=== PATIENT | female | born 1980 | race Caucasian/White ===

== ENCOUNTER 2018-08-06 17:45 | Observation (INO) | payer BC ==
[2018-08-06] MEDS ORDERED: Sodium Chloride 0.9% 1,000 ML IV STA (18:26)
--- NOTE | 2018-08-06 18:26 | ED PDOC ---
Arrival/HPI - General Chief Complaint: Cough, Cold, Congestion Time Seen by Provider: 08/06/18 17:50 Historian: Patient - History of Present Illness Narrative History of Present Illness (Text): 08/06/18 21:50 38 y/o female with no significant PMH presents to the ED c/o dry cough x 1 month with associated SOB starting today. SOB is intermittent and worse with exertion. Associated intermittent fever over the last few days. Pt is on OCPs but denies recent immobilization/trauma/travel or history of malignancy. No tobacco use. Ad mits to increased alcohol use on vacation last week. Denies chest pain, palpitations, nausea, vomiting, diarrhea, abdominal pain, calf pain or swelling, hemoptysis, headache, dizziness, vision changes, urinary symptoms, or any other associated symptoms. Past Medical History - Provider Review Nursing Documentation Reviewed: Yes Primary Care Provider: Ian Miller - Infectious Disease Hx of Infectious Diseases: None - Tetanus Immunization Tetanus Immunization: Unknown - HEENT Other/Comment: Retinal detachment syndrome - Genitourinary/Gynecological Other/Comment: multiple ovarian cyst with multiple laparoscopic sx - Psychiatric Hx Depression: No Hx Emotional Abuse: No Hx Physical Abuse: No Hx Substance Use: No - Surgical History Hx Section: Yes Other/Comment: ovarian cyst - Anesthesia Hx Anesthesia: Yes Hx Anesthesia Reactions: No Hx Malignant Hyperthermia: No - Suicidal Assessment Feels Threatened In Home Enviroment: No Family/Social History - Physician Review Nursing Documentation Reviewed: Yes Family/Social History: No Known Family HX Smoking Status: Never Smoked Hx Alcohol Use: Yes Frequency of alcohol use: Socially Hx Substance Use: No Allergies/Home Meds Allergies/Adverse Reactions: Allergies No Known Allergies Allergy (Verified 08/06/18 17:50) Home Medications: Home Meds Medication Instructions Recorded Confirmed Norethindrone-E.estradiol-Iron 1 tab PO DAILY 08/01/13 08/06/18 [Tilia Fe 35 Mcg-75 mg-1 mg] Albuterol HFA [Ventolin HFA 90 1 puff IH PRN PRN 08/06/18 08/06/18 mcg/actuation (8 g)] Review of Systems - Review of Systems Constitutional: Fevers Eyes: Normal. absent: Vision Changes ENT: Normal Respiratory: SOB, Cough. absent: Sputum Cardiovascular: Normal. absent: Chest Pain, Palpitations, Syncope Gastrointestinal: Normal. absent: Abdominal Pain, Stool Changes, Nausea, Vomiting, Appetite Changes Genitourinary Female: Normal. absent: Dysuria, Frequency Musculoskeletal: Normal. absent: Back Pain, Neck Pain Skin: Normal. absent: Rash Neurological: Normal. absent: Headache, Dizziness Physical Exam Vital Signs Reviewed: Yes Vital Signs Temp Pulse Resp BP Pulse Ox 08/06/18 17:50 98 F 110 H 18 133/79 98 Temperature: Afebrile Blood Pressure: Normal Pulse: Tachycardic Respiratory Rate: Normal Appearance: Positive for: Well-Appearing, Non-Toxic, Comfortable Pain Distress: None Mental Status: Positive for: Alert and Oriented X 3 - Systems Exam Head: Present: Atraumatic, Normocephalic Pupils: Present: PERRL Extroacular Muscles: Present: EOMI Conjunctiva: Present: Normal Mouth: Present: Moist Mucous Membranes Neck: Present: Normal Range of Motion. No: Meningeal Signs, MIDLINE TENDERNESS, Paraspinal Tenderness Respiratory/Chest: Present: Clear to Auscultation, Decreased Breath Sounds (bilaterally). No: Respiratory Distress, Accessory Muscle Use, Wheezes Cardiovascular: Present: Regular Rate and Rhythm, Normal S1, S2, Peripheal Pul ses Present Abdomen: Present: Normal Bowel Sounds. No: Tenderness, Distention, Peritoneal Signs, Rebound, Guarding, Other (no RUQ tenderness) Back: Present: Normal Inspection. No: CVA Tenderness Upper Extremity: Present: Normal Inspection, Normal ROM, NORMAL PULSES, Neurovascularly Intact, Capillary Refill < 2s. No: Cyanosis, Edema, Temperature Abnormalties Lower Extremity: Present: Normal Inspection, NORMAL PULSES, Normal ROM, Neurovascularly Intact, Capillary Refill < 2 s. No: Edema, Temperature Abnormalties Neurological: Present: GCS=15, CN II-XII Intact, Speech Normal, Motor Func Grossly Intact, Normal Sensory Function, Gait Normal Skin: Present: Warm, Dry, Normal Color. No: Rashes Psychiatric: Present: Alert, Oriented x 3, Normal Insight, Normal Concentration, Normal Affect, Normal Mood Medical Decision Making ED Course and Treatment: Initial Plan: * CBC, CMP * Coags * Dimer, Troponin * UA * EKG * CXR * IVF EKG shows rate 99; NSR; Normal axis; No STEMI or other signs of acute ischemia 1944 Bloodwork reviewed, no anemia or leukocytosis. LFTs mildly elevated. Pt has no abdominal pain, denies excessive tylenol use. Increase alcohol use last week on vacation. Monospot sent. Dimer elevated, CTA ordered. Pt in XR. CT to be done stat. 2155 CTA negative for pulmonary embolism, shows hepatomegaly. Spoke with PMD Dr. Miller who accepted patient for inpatient observation. Requests GI (Dr. Day) and Pulmonology (Dr. Kennedy) on consult. Plan is for remote telemetry, however he requests bilateral venous duplex prior to admission secondary to elevated dimer. 0030 Bilateral venous duplex prelim read as negative. Patient updated with results. Vitals have improved since triage. Admission order placed for remote telemetry. - Lab Interpretations Lab Results: 08/06/18 18:59 08/06/18 18:59 Lab Results 08/06/18 19:40: Urine Color Yellow, Urine Appearance Clear, Urine pH 6.0, Ur Specific [place] 1.025, Urine Protein Trace H, Urine Glucose (UA) Negative, Urine Ketones Negative, Urine Blood Small H, Urine Nitrate Negative, Urine Bilirubin Negative, Urine Urobilinogen 0.2, Ur Leukocyte Esterase Negative, Urine RBC 1 - 3 H, Urine WBC 0 - 2, Ur Epithelial Cells 0 - 2, Urine Bacteria Few 08/06/18 19:15: pO2 32, VBG pH 7.41, VBG pCO2 43.0, VBG HCO3 27.3, VBG Total CO2 28.6 H, VBG O2 Sat (Calc) 71.7 H, VBG Base Excess 2.2 H, VBG Potassium 4.5, Glucose 86, Lactate 1.1, FiO2 21.0, Sodium 134.0, Chloride 102.0, Venous Blood Potassium 4.5 08/06/18 18:59: Sodium 135, Potassium 4.4, Chloride 102, Carbon Dioxide 27, Anion Gap 10, BUN 10, Creatinine 0.6 L, Est GFR ( Amer) > 60, Est GFR (Non-Af Amer) > 60, Random Glucose 84, Calcium 8.7, Magnesium 1.9, Total Bilirubin 0.4, AST 169 H, ALT 149 H, Alkaline Phosphatase 80, Lactate Dehydrogenase 1195 H, Total Creatine Kinase 68, Troponin I < 0.01, NT-Pro-B Natriuret Pep 29.7, Total Protein 6.9, Albumin 3.7, Globulin 3.2, Albumin/Globulin Ratio 1.1 08/06/18 18:59: PT 11.6, INR 1.05, APTT 26.9, D-Dimer, Quantitative 6108 H 08/06/18 18:59: WBC 5.2, RBC 4.51, Hgb 12.9, Hct 38.6, MCV 85.6, MCH 28.6, MCHC 33.4, RDW 16.7 H, Plt Count 155, MPV 11.2 H, Neut % (Auto) 57.0, Lymph % (Auto) 31.5, [place] % (Auto) 9.4 H, Eos % (Auto) 0.2 L, Baso % (Auto) 1.9, Lymph # (Auto) 1.7, [place] # (Auto) 0.5, Eos # (Auto) 0.0, Baso # (Auto) 0.10, Absolute Neuts (auto) 2.98 I have reviewed the lab results: Yes - RAD Interpretation Narrative RAD Interpretations (Text): 08/06/18 21:43 CTA PE Protocol: FINDINGS: PULMONARY ARTERIES No evidence of central or segmental pulmonary embolism is seen. AORTA There is no evidence for aneurysm or dissection of the thoracic aorta. LUNGS The lungs appear clear. PLEURAL SPACES No pneumothorax evident. No pleural effusions. HEART Heart size is within normal limits. No pericardial effusion. LYMPH NODES No lymphadenopathy is evident. BONES No focal osseous abnormality or acute fracture. UPPER ABDOMEN Images of the upper abdomen demonstrate hepatomegaly. The liver measured 17.2 cm in the midclavicular line. IMPRESSION: 1. Unremarkable pulmonary embolism protocol CTA of the chest. 2. Hepatomegaly. Electronically signed on Aug 06, 2018 9:35:15 PM EDT by: Scott Ayoub M.D., M.B.A., Certified By [employer] Trained MRI and CT Specialist Stage Set Up Worker: Radiologist - EKG Interpretation EKG Interpretation (Text): 08/06/18 21:16 Rate 99; NSR; No STEMI or other signs of acute ischemia Interpreted by ED Physician: Yes Type: 12 lead EKG Disposition/Present on Arrival - Present on Arrival Any Indicators Present on Arrival: No History of DVT/PE: No History of Uncontrolled Diabetes: No Urinary Catheter: No History of Decub. Ulcer: No History Surgical Site Infection Following: None - Disposition Have Diagnosis and Disposition been Completed?: Yes Diagnosis: SOB (shortness of breath), Elevated d-dimer, Cough Disposition: HOSPITALIZED Disposition Time: 21:55 Patient Plan: Admission Condition: STABLE
[2018-08-06 19:21] LABS: BASO # 0.1 K/mm3 (0.0-2.0); BASO % 1.9 % (0.0-3.0); EOS % 0.2 % (1.5-5.0); HEMOGLOBIN 12.9 g/dL (12.0-16.0); LYMPH # 1.7 (1.2-3.4); LYMPH % 31.5 % (22.0-35.0); MEAN CELL VOLUME 85.6 fl (80.0-105.0); MEAN CORPUSCULAR HEMOGLOBIN 28.6 pg (25.0-35.0); MEAN CORPUSCULAR HGB CONC 33.4 g/dl (31.0-37.0); MEAN PLATELET VOLUME 11.2 fl (7.0-11.0); MONO # 0.5 (0.1-0.6); MONO % 9.4 % (1.0-6.0); RBC 4.51 10^6/uL (3.5-6.1); RED CELL DISTRIBUTION WIDTH 16.7 % (11.5-14.5); WHITE BLOOD COUNT 5.2 10^3/uL (4.5-11.0)
[2018-08-06 19:23] LABS: ALB/GLOB RATIO 1.1 (1.1-1.8); ALBUMIN 3.7 g/dL (3.0-4.8); BLOOD UREA NITROGEN 10 mg/dL (7-21); CALCIUM 8.7 mg/dL (8.4-10.5); GFR NON-AFRICAN AMERICAN > 60
[2018-08-06 19:30] LABS: VENOUS BLOOD GAS BASE EXCESS 2.2 mmol/L (0.0-2.0); VENOUS BLOOD GAS PO2 32 mm/Hg (30-55); VENOUS BLOOD PH 7.41 (7.32-7.43)
[2018-08-06 19:32] LABS: ALT/SGPT 149 U/L (7-56); AST/SGOT 169 U/L (14-36)
[2018-08-06 19:38] LABS: INR 1.05; PARTIAL THROMBOPLASTIN TIME 26.9 Seconds (26.9-38.3); PROTHROMBIN TIME 11.6 SECONDS (9.4-12.5)
[2018-08-06 19:42] LABS: B-TYPE NATRIURETIC PEPTIDE 29.7 pg/mL (0-450); TROPONIN I < 0.01 ng/mL
[2018-08-06 19:54] LABS: URINE BILIRUBIN NEGATIVE (NEGATIVE); URINE BLOOD SMALL (NEGATIVE); URINE GLUCOSE (UA) NEGATIVE (NEGATIVE); URINE LEUKOCYTE ESTERASE NEGATIVE Leu/uL (NEGATIVE); URINE PROTEIN TRACE mg/dL (<30 mg/dL); URINE UROBILINOGEN 0.2 E.U./dL (<1 E.U./dL)
[2018-08-06 20:00] LABS: URINE COLOR YELLOW (YELLOW)
[2018-08-06 20:01] LABS: URINE APPEARANCE CLEAR (CLEAR)
[2018-08-06] MEDS ORDERED: Iohexol 350 MG/100 ML VIAL ONE (20:29)
[2018-08-06 20:32] LABS: URINE BACTERIA FEW /hpf; URINE EPITHELIAL CELLS 0 - 2 /hpf (0-5); URINE WBC 0 - 2 /hpf (0-6)
--- NOTE | 2018-08-06 21:35 | CARD ---
APPROVED REPORT Date of service: 08/06/2018 EKG Measurement Heart [id number] <Conclusion> Poor data quality, interpretation may be adversely affected Normal sinus rhythm Normal ECG
[2018-08-06] MEDS: MethylPREDNISolone 40 mg Vial IVP SCH (23:06)
[2018-08-07] MEDS ORDERED: Sodium Chloride 0.9% 1,000 ML IV SCH (01:15)
[2018-08-07 01:56] VITALS: BMI 32.0
[2018-08-07 01:58] VITALS: O2SAT 97
[2018-08-07] MEDS: Albuterol-Ipratrop 3 mg / 0.5 (3 ml) UD IH SCH ×2 (07:46→13:12)
[2018-08-07 07:56] VITALS: BP 103/66; RESP 18; TEMP 97.6
--- NOTE | 2018-08-07 08:22 | CT ---
Date of service: 08/06/2018 PROCEDURE: CT Chest with contrast (Pulmonary Angiogram) HISTORY: tachycardia, elevated dimer, SOB COMPARISON: None available. TECHNIQUE: Axial computed tomography images were obtained of the chest in the pulmonary arterial phase of enhancement. Coronal and sagittal reformatted images were created and reviewed. Intravenous contrast dose: 100 cc Omnipaque 350. Mean Hounsfield value in the main pulmonary artery: 255.85 Radiation dose: Total exam DLP = 284.83 mGy-cm. This CT exam was performed using one or more of the following dose reduction techniques: Automated exposure control, adjustment of the mA and/or kV according to patient size, and/or use of iterative reconstruction technique. FINDINGS: PULMONARY ARTERIES: Unremarkable. No pulmonary embolism. AORTA: No acute findings. No thoracic aortic aneurysm. No atherosclerotic calcification or mural plaque present. LUNGS: Unremarkable. No nodule, mass or pulmonary consolidation. PLEURAL SPACES: Unremarkable. No effusion or pneumothorax. HEART: Unremarkable. No cardiomegaly. No significant pericardial effusion. LYMPH NODES: No lymphadenopathy. BONES, CHEST WALL: Unremarkable. No fracture or destructive lesion OTHER FINDINGS: Unremarkable. IMPRESSION: Unremarkable CT pulmonary angiogram. No pulmonary embolus. Concordant results (preliminary interpretation) provided by Hooja. Procedure Completed: 20:36. Preliminary Report: Interpreted and electronically signed: 21:35. Final Interpretation: 08:18.
--- NOTE | 2018-08-07 08:56 | US ---
HISTORY: Leg pain and swelling. Evaluate for DVT PHYSICIAN(S): Joe Gao MD. TECHNIQUE: Duplex sonography and color-flow Doppler with graded compression were used to evaluate the deep venous systems of both lower extremities. FINDINGS: The visualized deep venous systems of both lower extremities are sonographically normal and compressible. Normal wave forms and augmentation are seen. There is no sonographic evidence for deep venous thrombosis in the visualized segments of both lower extremities. IMPRESSION: No sonographic evidence for deep venous thrombosis in the visualized segments of both lower extremities.
[2018-08-07] MEDS: MethylPREDNISolone 40 mg Vial IVP SCH (09:24)
--- NOTE | 2018-08-07 10:08 | RAD ---
Date of service: 08/06/2018 HISTORY: SOB COMPARISON: No prior. TECHNIQUE: Chest PA and lateral views FINDINGS: LUNGS: No active pulmonary disease. PLEURA: No significant pleural effusion identified. No pneumothorax apparent. CARDIOVASCULAR: No aortic atherosclerotic calcification present. Normal cardiac size. No pulmonary vascular congestion. OSSEOUS STRUCTURES: No significant abnormalities. VISUALIZED UPPER ABDOMEN: Normal. OTHER FINDINGS: None. IMPRESSION: No active disease.
--- NOTE | 2018-08-07 10:23 | CP.PCM.CON ---
<Leno Gonzales - Last Filed: 08/07/18 13:14> History of Present Illness - History of Present Illness History of Present Illness: PGY6 GI Fellow Consult Note Patient is a 38yo female without significant past medical history who presented to the ED with cough and shortness of breath. Four days prior to admission the patient developed recurrent upper respiratory symptoms including cough and rh inorrhea. Yesterday, patient developed sudden onset dyspnea with exertion and presented to her PCP and was promptly directed to the emergency room. Our service has been consulted as elevated LFTs were noted on initial blood work. Patient admits that she drank more alcohol than usual this past week with 2-3 drinks per day over a 3 day span. She notes having had loose stool and cramping abdominal discomfort last week after eating out at a [employer] restaurant. She denies any IVDU or tattoos and has never been diagnosed with viral Hepatitis or autoimmune conditions. No recent OTC medications or supplements. Only recent prescription was Tamiflu which she took in early July when diagnosed with Inf luenza. Denies nausea, vomiting, weight loss, fever, chills, jaundice, pruritus. 12 system ROS performed and negative except where stated PMHx: See HPI PSHx: Ovarian cyst removed, right ovary removed, right retinal detachment repair, salivary gland cyst removed, FHx: Mother - Alzheimer dementia; Father - Osteoarthritis Social: Socail EtOH use - more recent increase last week as stated; denies tobacco or illicit drug use Endo: No prior endoscopic evaluations Past Patient History - Infectious Disease Hx of Infectious Diseases: None - Tetanus Immunizations Tetanus Immunization: Unknown - Past Social History Smoking Status: Never Smoked - CARDIAC Hx Cardiac Disorders: No - PULMONARY Hx Respiratory Disorders: No - NEUROLOGICAL Hx Neurological Disorder: No - HEENT Other/Comment: Retinal detachment syndrome - RENAL Hx Chronic Kidney Disease: No - ENDOCRINE/METABOLIC Hx Endocrine Disorders: No - HEMATOLOGICAL/ONCOLOGICAL Hx Blood Disorders: No - INTEGUMENTARY Hx Dermatological Problems: No - MUSCULOSKELETAL/RHEUMATOLOGICAL Hx Musculoskeletal Disorders: No Hx Falls: No - GASTROINTESTINAL Hx Gastrointestinal Disorders: No - GENITOURINARY/GYNECOLOGICAL Other/Comment: multiple ovarian cyst with multiple laparoscopic sx - PSYCHIATRIC Hx Depression: No Hx Emotional Abuse: No Hx Physical Abuse: No Hx Substance Use: No - SURGICAL HISTORY Hx Section: Yes Other/Comment: ovarian cyst - ANESTHESIA Hx Anesthesia: Yes Hx Anesthesia Reactions: No Hx Malignant Hyperthermia: No Meds Home Medications: Home Medication List Medication Instructions Recorded Confirmed Type predniSONE [predniSONE Tab] See Taper PO DAILY 9 Days tab 08/07/18 Rx Allergies/Adverse Reactions: Allergies Allergy/AdvReac Type Severity Reaction Status Date / Time No Known Allergies Allergy Verified 08/06/18 17:50 - Medications Medications: Current Medications Albuterol/Ipratropium (Duoneb 3 Mg/0.5 Mg (3 Ml) Ud) 3 ml IH [id number] [facility] Last Admin: 08/07/18 07:46 Dose: 3 ml Sodium Chloride (Sodium Chloride 0.9%) 1,000 mls @ 100 mls/hr IV .Q10H [facility] Last Admin: 08/07/18 01:30 Dose: 100 mls/hr Methylprednisolone (Solu-Medrol) 30 mg IVP Q12H [facility] Last Admin: 08/07/18 09:24 Dose: 30 mg Physical Exam - Constitutional Appears: Non-toxic, No Acute Distress - Eye Exam Eye Exam: EOMI, PERRL - ENT Exam ENT Exam: Mucous Membranes Moist - Respiratory Exam Respiratory Exam: Clear to Auscultation Bilateral. absent: Rales, Rhonchi, Wheezes - Cardiovascular Exam Cardiovascular Exam: RRR, +S1, +S2 - GI/Abdominal Exam GI & Abdominal Exam: Normal Bowel Sounds, Soft. absent: Distended, Firm, Guarding, Hernia, Mass, Organomegaly, Rigid, Tenderness - Extremities Exam Extremities exam: Positive for: normal inspection. Negative for: pedal edema - Neurological Exam Neurological exam: Alert, Oriented x3 - Psychiatric Exam Psychiatric exam: Normal Affect, Normal Mood - Skin Skin Exam: Dry, Warm Results - Vital Signs Recent Vital Signs: Last Vital Signs Temp 97.6 F 08/07/18 07:55 Pulse 78 08/07/18 07:55 Resp 18 08/07/18 07:55 BP 103/66 08/07/18 07:55 Pulse Ox 97 08/07/18 07:55 - Labs Result Diagrams: 08/06/18 18:59 08/06/18 18:59 Labs: Laboratory Results - last 24 hr 08/06/18 08/06/18 08/06/18 18:59 18:59 18:59 WBC 5.2 RBC 4.51 Hgb 12.9 Hct 38.6 MCV 85.6 MCH 28.6 MCHC 33.4 RDW 16.7 H Plt Count 155 MPV 11.2 H Neut % (Auto) 57.0 Lymph % (Auto) 31.5 [place] % (Auto) 9.4 H Eos % (Auto) 0.2 L Baso % (Auto) 1.9 Lymph # (Auto) 1.7 [place] # (Auto) 0.5 Eos # (Auto) 0.0 Baso # (Auto) 0.10 Absolute Neuts (auto) 2.98 PT 11.6 INR 1.05 APTT 26.9 D-Dimer, Quantitative 6108 H pO2 VBG pH VBG pCO2 VBG HCO3 VBG Total CO2 VBG O2 Sat (Calc) VBG Base Excess VBG Potassium Glucose Lactate FiO2 Sodium 135 Potassium 4.4 Chloride 102 Carbon Dioxide 27 Anion Gap 10 BUN 10 Creatinine 0.6 L Est GFR ( Amer) > 60 Est GFR (Non-Af Amer) > 60 Random Glucose 84 Calcium 8.7 Magnesium 1.9 Total Bilirubin 0.4 AST 169 H ALT 149 H Alkaline Phosphatase 80 Lactate Dehydrogenase 1195 H Total Creatine Kinase 68 Troponin I < 0.01 NT-Pro-B Natriuret Pep 29.7 Total Protein 6.9 Albumin 3.7 Globulin 3.2 Albumin/Globulin Ratio 1.1 Venous Blood Potassium Urine Color Urine Appearance Urine pH Ur Specific [place] Urine Protein Urine Glucose (UA) Urine Ketones Urine Blood Urine Nitrate Urine Bilirubin Urine Urobilinogen Ur Leukocyte Esterase Urine RBC Urine WBC Ur Epithelial Cells Urine Bacteria Monoscreen 08/06/18 08/06/18 08/06/18 19:15 19:40 21:30 WBC RBC Hgb Hct MCV MCH MCHC RDW Plt Count MPV Neut % (Auto) Lymph % (Auto) [place] % (Auto) Eos % (Auto) Baso % (Auto) Lymph # (Auto) [place] # (Auto) Eos # (Auto) Baso # (Auto) Absolute Neuts (auto) PT INR APTT D-Dimer, Quantitative pO2 32 VBG pH 7.41 VBG pCO2 43.0 VBG HCO3 27.3 VBG Total CO2 28.6 H VBG O2 Sat (Calc) 71.7 H VBG Base Excess 2.2 H VBG Potassium 4.5 Glucose 86 Lactate 1.1 FiO2 21.0 Sodium 134.0 Potassium Chloride 102.0 Carbon Dioxide Anion Gap BUN Creatinine Est GFR ( Amer) Est GFR (Non-Af Amer) Random Glucose Calcium Magnesium Total Bilirubin AST ALT Alkaline Phosphatase Lactate Dehydrogenase Total Creatine Kinase Troponin I NT-Pro-B Natriuret Pep Total Protein Albumin Globulin Albumin/Globulin Ratio Venous Blood Potassium 4.5 Urine Color Yellow Urine Appearance Clear Urine pH 6.0 Ur Specific [place] 1.025 Urine Protein Trace H Urine Glucose (UA) Negative Urine Ketones Negative Urine Blood Small H Urine Nitrate Negative Urine Bilirubin Negative Urine Urobilinogen 0.2 Ur Leukocyte Esterase Negative Urine RBC 1 - 3 H Urine WBC 0 - 2 Ur Epithelial Cells 0 - 2 Urine Bacteria Few Monoscreen Negative Assessment & Plan - Assessment and Plan (Free Text) Assessment: Patient is a 38yo female without significant past medical history who presented to the ED with cough and shortness of breath -Elevated LFTs -Gallbladder polyp -Acute upper respiratory infection Plan: -AST/ALT both >5x ULN; possibly related to recent EtOH if patient under- reporting use vs viral causes, DILI, COWAN or autoimmune etiologies -U/S abdomen ordered and reviewed - can monitor gallbladder polyp size in 6 months with repeat U/S -Check viral hepatitis serologies -Check autoimmune markers - LEVI, AMA, SMA, IgG, IgM -Monoscreen negative -No obvious cause of DILI -If patient to be discharged today, encourage outpatient monitoring of LFTs within 1-2 weeks to ensure downtrending levels and follow up on autoimmune serologies -Ultimately, if labs do not improve or indeed worsen, pt may require liver biop sy for further evaluation - Date & Time Date: 08/07/18 Time: 09:15 <Jakob Day - Last Filed: 08/07/18 16:22> Results - Vital Signs Recent Vital Signs: Last Vital Signs Temp 97.6 F 08/07/18 07:55 Pulse 103 H 08/07/18 10:00 Resp 18 08/07/18 07:55 BP 103/66 08/07/18 07:55 Pulse Ox 97 08/07/18 07:55 - Labs Result Diagrams: 08/06/18 18:59 08/06/18 18:59 Labs: Laboratory Results - last 24 hr 08/06/18 08/06/18 08/06/18 18:59 18:59 18:59 WBC 5.2 RBC 4.51 Hgb 12.9 Hct 38.6 MCV 85.6 MCH 28.6 MCHC 33.4 RDW 16.7 H Plt Count 155 MPV 11.2 H Neut % (Auto) 57.0 Lymph % (Auto) 31.5 [place] % (Auto) 9.4 H Eos % (Auto) 0.2 L Baso % (Auto) 1.9 Lymph # (Auto) 1.7 [place] # (Auto) 0.5 Eos # (Auto) 0.0 Baso # (Auto) 0.10 Absolute Neuts (auto) 2.98 PT 11.6 INR 1.05 APTT 26.9 D-Dimer, Quantitative 6108 H pO2 VBG pH VBG pCO2 VBG HCO3 VBG Total CO2 VBG O2 Sat (Calc) VBG Base Excess VBG Potassium Glucose Lactate FiO2 Sodium 135 Potassium 4.4 Chloride 102 Carbon Dioxide 27 Anion Gap 10 BUN 10 Creatinine 0.6 L Est GFR ( Amer) > 60 Est GFR (Non-Af Amer) > 60 Random Glucose 84 Calcium 8.7 Magnesium 1.9 Total Bilirubin 0.4 AST 169 H ALT 149 H Alkaline Phosphatase 80 Lactate Dehydrogenase 1195 H Total Creatine Kinase 68 Troponin I < 0.01 NT-Pro-B Natriuret Pep 29.7 Total Protein 6.9 Albumin 3.7 Globulin 3.2 Albumin/Globulin Ratio 1.1 Venous Blood Potassium Urine Color Urine Appearance Urine pH Ur Specific [place] Urine Protein Urine Glucose (UA) Urine Ketones Urine Blood Urine Nitrate Urine Bilirubin Urine Urobilinogen Ur Leukocyte Esterase Urine RBC Urine WBC Ur Epithelial Cells Urine Bacteria Monoscreen 08/06/18 08/06/18 08/06/18 19:15 19:40 21:30 WBC RBC Hgb Hct MCV MCH MCHC RDW Plt Count MPV Neut % (Auto) Lymph % (Auto) [place] % (Auto) Eos % (Auto) Baso % (Auto) Lymph # (Auto) [place] # (Auto) Eos # (Auto) Baso # (Auto) Absolute Neuts (auto) PT INR APTT D-Dimer, Quantitative pO2 32 VBG pH 7.41 VBG pCO2 43.0 VBG HCO3 27.3 VBG Total CO2 28.6 H VBG O2 Sat (Calc) 71.7 H VBG Base Excess 2.2 H VBG Potassium 4.5 Glucose 86 Lactate 1.1 FiO2 21.0 Sodium 134.0 Potassium Chloride 102.0 Carbon Dioxide Anion Gap BUN Creatinine Est GFR ( Amer) Est GFR (Non-Af Amer) Random Glucose Calcium Magnesium Total Bilirubin AST ALT Alkaline Phosphatase Lactate Dehydrogenase Total Creatine Kinase Troponin I NT-Pro-B Natriuret Pep Total Protein Albumin Globulin Albumin/Globulin Ratio Venous Blood Potassium 4.5 Urine Color Yellow Urine Appearance Clear Urine pH 6.0 Ur Specific [place] 1.025 Urine Protein Trace H Urine Glucose (UA) Negative Urine Ketones Negative Urine Blood Small H Urine Nitrate Negative Urine Bilirubin Negative Urine Urobilinogen 0.2 Ur Leukocyte Esterase Negative Urine RBC 1 - 3 H Urine WBC 0 - 2 Ur Epithelial Cells 0 - 2 Urine Bacteria Few Monoscreen Negative Attending/Attestation - Attestation I have personally seen and examined this patient.: Yes I have fully participated in the care of the patient.: Yes I have reviewed all pertinent clinical information: Yes Notes (Text): 08/07/18 16:17 I have seen and examined patient with GI fellow. Agree with above documentation with the following additions. In brief, this is a 38 year old female without significant medical history who presents to hospital with progressive cough and associated dyspnea. She reports recent URI and currently being treated as such, GI called for evaluation of elevated LFTs. She denies abdominal pain, nausea, vomiting, fever/chills, recent travel, sick contacts, jaundice, pruritis, weight loss, excessive ETOH/tylenol use. No prior knowledge of liver disease. URI Transaminitis Abdominal US shows no focal hepatic lesions, +gallbladder polyp - Diet as tolerated - Continue with antibiotic therapy as per medical team - Obtain viral hepatitis and autoimmune panels - Patient planned for hospital discharge today, if this is the case she will require outpatient follow up within 1 week for repeat bloodwork to ensure normalization. Further workup pending results of additional testing.
--- NOTE | 2018-08-07 10:44 | US ---
Date of service: 08/07/2018 HISTORY: abnormal LFTs COMPARISON: None. TECHNIQUE: Sonographic evaluation of the abdomen. FINDINGS: LIVER: Measures 14.7 cm. Patent portal and hepatic venous systems. Portal venous flow: Hepatopetal. echogenicity of the liver parenchyma. No mass. No intrahepatic bile duct dilatation. GALLBLADDER: Echogenic focus in the neck of the gallbladder 2.5 mm nonshadowing likely small gallbladder polyp. COMMON BILE DUCT: Measures 4.6 mm. No stones. No dilatation. PANCREAS: Unremarkable as visualized. No mass. No ductal dilatation. RIGHT KIDNEY: Measures 4.2 x 10.3cm. Normal echogenicity. No calculus, mass, or hydronephrosis. LEFT KIDNEY: Measures 5.5 x 11.2cm. Normal echogenicity. No calculus, mass, or hydronephrosis. SPLEEN: Normal in size and contour. No mass. AORTA: No aneurysmal dilatation. IVC: Unremarkable. OTHER FINDINGS: None. IMPRESSION: No significant or acute findings to account for/ related to the clinical presentation. Incidental finding(s): 2.5 mm gallbladder polyp.
[2018-08-07 13:34] VITALS: PULSE 103
[2018-08-07 16:32] LABS: IMMUNOGLOBULIN G 852.5 mg/dL (700.0-1600.0); IMMUNOGLOBULIN M 123.4 mg/dL (40.0-230.0)
[2018-08-07 16:58] LABS: HEPATITIS B SURFACE AG Negative (NEGATIVE)
[2018-08-07 17:04] LABS: HEPATITIS A IGM NEGATIVE (NEGATIVE); HEPATITIS B CORE AB NEGATIVE (NEGATIVE)
[2018-08-07 17:16] LABS: HEPATITIS C ANTIBODY NEGATIVE (NEGATIVE)
--- NOTE | 2018-08-07 20:35 | HP ---
DATE OF EXAM: 08/07/2018 HISTORY OF PRESENT ILLNESS: I had seen her on in the emergency room at [facility] and had spoken to the ER doctor, we discussed medicines, we went and got tests done because of her shortness of breath with wheezing and she has been doing this for a month. She is a 38-year-old white female who was seen in the office, did not do well and now she went to the ER, she is short of breath for about a month with coughing, some wheezing. She has DuoNebs at home, just not getting better. She was drinking a little more alcohol last week, but nothing else. PAST MEDICAL HISTORY: She has a history of asthma, she does take puffers at home. She had a retinal detachment syndrome, multiple ovarian cysts with multiple laparoscopic surgeries. No depression. No anxiety. PAST SURGICAL HISTORY: She had an ovarian cyst and . FAMILY HISTORY: No known family history. SOCIAL HISTORY: Never smoked, occasional alcohol. No drugs. ALLERGIES: NO KNOWN DRUG ALLERGIES. MEDICATIONS: She is on a control pill and Ventolin. REVIEW OF SYSTEMS: She had developed fevers of 101. No vision changes. No hearing changes. No sore throat. There is shortness of breath with cough. Occasional wheeze. No sputum. Dry cough. No chest pain or palpitations. No abdominal pain. No nausea, vomiting, constipation, or diarrhea. No problems urinating. No back pain. No neck pain. Skin is intact that she knows of. No rashes. No headaches or dizziness. PHYSICAL EXAMINATION: VITAL SIGNS: A 98 temperature, 110 pulse, 18 respiratory rate, 133/79 blood pressure, and 98% O2 sat. GENERAL: She is well-appearing, nontoxic, comfortable at rest, alert and oriented x3, but she did tell me she walked up a half a flight of stairs and had to stop because she was short of breath. HEENT: Head is atraumatic and normocephalic. Extraocular muscles are intact. Pupils are equally reactive to light. Throat is dry. NECK: Supple. No JVD. No palpable cervical lymphadenopathy. Thyroid midline. Good range of motion. LUNGS: Decreased breath sounds, wheezes bilaterally that changes with cough, just cannot take a deep breath in. HEART: Regular rate. Normal S1 and S2. ABDOMEN: Soft and nontender. Positive bowel sounds. No guarding. No rebound. No CVA tenderness. EXTREMITIES: No edema. NEUROLOGIC: GCS is 15. Cranial nerves II through XII grossly intact. Speech is normal. Alert and oriented x3. SKIN: Warm and dry. No apparent rashes or ulcers appreciated. LABORATORY DATA: EKG showed normal sinus rhythm, normal axis, now with STEMI. She had a CAT scan, which was negative for pulmonary embolus. Bilateral venous Dopplers of the lower extremities read as negative. She had multiple blood tests done. Negative for mono screen. Urine was negative. Sodium 135, potassium 4.4, BUN 10, creatinine 0.6, GFR is greater than 60, sugar is 84, calcium is 8.7, magnesium 1.9, and total bili is 0.4. AST is 169, ALT is 149 quite high, and alk phos is 80. Lactate dehydrogenase is also high at 1195. Total creatine kinase is 68. Troponin I is less than 0.01. BNP is 29.7, total protein is 6.9, albumin is 2.7, and globulin 3.2. This could be related to control pills are elevating the liver enzymes. She had a 7.41 pH. Lactate was 1.1. INR was 1.05. The D-dimer was cherelle high at 6108, but the CAT scan angio was negative. White count 5.2, hemoglobin 12.9, hematocrit 38.6, and platelets 155. ASSESSMENT AND PLAN: There is a consult for Gastroenterology and Pulmonary. She will be on prednisone 30 mg IV every 12 hours. She is status post prednisone 125 mg in the emergency room, IV fluids, DuoNebs, and she is doing better. I think she will do better with this, a heart-healthy diet, and we will see how she progresses. This is an admission on Tiny Rodriguez who failed outpatient treatment, had a month of coughing and wheezing, and now in hospital for acute asthma. Ian Miller DO
--- NOTE | 2018-08-07 20:49 | CON ---
DATE: 08/07/2018 PULMONARY CONSULTATION We were asked by Dr. 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 HISTORY OF PRESENT ILLNESS: The patient states that she had a flu-like illness one month ago with high fever. Her children were diagnosed with influenza. She herself received Tamiflu from he primary care physician, Dr. Miller and improved; however, the cough persisted. There was no associated wheezing and there was no significant shortness of breath until the night prior to that. The patient developed some shortness of breath and not feeling well along with the cough and decided to go to emergency room. She also admitted to some consumption of alcohol with extra beers which was somewhat unusual for her. Upon evaluation in emergency room, she was found to have a markedly elevated D-dimer among other laboratory abnormalities, especially liver function test abnormalities and underwent a CT angiogram which was negative for pulmonary emboli. HABITS: She is nonsmoker; admits to increased use of alcohol on vacation last week. No drugs. FAMILY HISTORY: Negative for inherited diseases. REVIEW OF SYSTEMS: Review of systems was conducted by reviewing all sources. General: Currently she is afebrile and on and off cough. Cardiovascular: No chest pain. No palpitations. Pulmonary: See history of present illness. Gastrointestinal: No nausea, vomiting or diarrhea, but hepatomegaly noted on the CT scan. Genitourinary: No dysuria or hematuria. All other systems negative. MEDICATIONS: She was on Tamiflu in the past and Tessalon Perles without much relief. PAST MEDICAL HISTORY: Positive for retinal detachment. 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 ALLERGIES: NO KNOWN ALLERGIES. PHYSICAL EXAMINATION: VITAL SIGNS: Temperature on admission 98, pulse 104, respirations 18, blood pressure 130/79, and pulse oximetry 98% on room air. HEENT: Examination of head, ear, nose and throat is within normal limit. NECK: Supple with no jugular vein distentions. CARDIOVASCULAR: S1 and S2. No S3, irregular. PULMONARY: Lungs clear to auscultation and percussion. GASTROINTESTINAL: Abdomen soft and nontender. No organomegaly. : Within normal limits EXTREMITIES: No pedal edema. No cyanosis. SKIN: Clear with no skin rashes. NEUROLOGIC: No focal deficits. LABORATORY DATA: Reviewed. Her WBC is 5.2, hemoglobin 12.9. Electrolytes are normal and kidney functions are normal as well. D-dimer elevated at 6108. Her liver function tests are elevated with AST of 170, ALT of 140, and LDH of 1200. Cardiac troponins are negative. Next reviewed a CT angio, which is negative for pulmonary emboli, but in addition to that shows clear lungs with no infiltrates and no pleural effusions. Chest x-ray done prior to CTA shows clear lungs with no infiltrates or effusions. ASSESSMENT AND PLAN: 1. Cough, most likely post viral bronchitis. 2. No evidence of airway disease clinically. However, if the cough persists, pulmonary function tests will be offered. She is started on nebulizer treatments with DuoNeb with not much change so far. We will observe further. 3. She has significant liver function abnormalities, and workup of hepatomegaly and possible alcoholic hepatitis is in progress. We will recheck intermittently. Jt Medel MD MTDD
--- NOTE | 2018-08-08 04:19 | DS ---
HISTORY OF PRESENT ILLNESS: I admitted her last night in [facility]. She is doing much better today on Solu-Medrol and DuoNeb. Much more comfortable. No more wheezing. No coughing. Two things that are going on because she came in with asthma, much improved with Solu-Medrol. Also her liver enzymes are elevated which could be possibly from her control pills. I have no other reason. She did drink alcohol about a week ago, but they are still high. PHYSICAL EXAMINATION: GENERAL: She is smiling. Breathing is much better at rest. VITAL SIGNS: She has a 97.6 temperature, 78 pulse, 103/66 blood pressure, 18 respiratory rate, and 97% O2 saturation on room air. HEENT: Head is atraumatic and normocephalic. Throat is moist. NECK: Supple. HEART: Regular rate. LUNGS: Clear lungs today. No wheezes. No rhonchi. No rales. Her Solu-Medrol really opened her up very nicely. The lungs are great. ABDOMEN: Soft and nontender. Positive bowel sounds. EXTREMITIES: No edema. MEDICATIONS: She is on DuoNeb, IV fluids, and Solu-Medrol. LABORATORY DATA: She has a 5.2 white count, 12.9 hemoglobin, and 155 platelets. A 135 sodium and potassium 4.4. The liver enzymes are elevated. ASSESSMENT AND PLAN: There were supposed to be labs are today. I will wait and see what they say about her liver enzymes, they are pending. I am hoping to discharge her later today if I get the okay from Gastroenterology and Pulmonary. I will put her on prednisone 30 mg for 3 days, 20 mg for 3 days, 10 mg for 3 days and stop. I will see her in the outpatient. It might be a control pill issue for that liver enzymes being elevated. I will discuss that with the mental health therapist, and if it is okay with Gastroenterology and Pulmonary, I will discharge her. Ian Miller DO
--- NOTE | 2018-08-10 08:02 | PQF ---
PROVIDER RESPONSE TEXT: Mod persistent REVIEWER QUERY TEXT: Asthma Specificity and Type Physician?s Documentation Request This Form is Not a Permanent Document in the Medical Record Pt Name: MARY DE SANTIAGO MR #: [id number] Payor: [facility] Unit/Bed: [id number]-368-01 Adm Date: 08/07/2018 12:29:00 AM Reviewer: Yvonne Garrett Ext. Query Date: 08/08/2018 2:53:33 PM Asthma Specificity and Type [id number] By submitting this query, we are merely seeking further clarification of documentation to accurately reflect all conditions that you are monitoring, evaluating, treating or that extend the hospitalizati on or utilize additional resources of care. Please utilize your independent clinical judgment when ad dressing the question(s) below. Dear Doctor Ian Miller, The patient?s Clinical Indicators include: Please see query. Thank you. Asthma is documented in the Medical Record. Please specify the type and severity of asthma and indic ate if this is associated with exacerbation or status asthmaticus. Such as: -- Mild intermittent -- Mild persistent -- Moderate persistent -- Severe persistent -- Exercise induced bronchospasm -- Cough variant asthma -- Other, please specify PLEASE DOCUMENT ANY ADDITIONAL DIAGNOSES AND/OR SPECIFICITY IN THE PROGRESS NOTES AND/OR DISCHARGE [facility]. Clinically unable to determine/unknown Disagree with the above request Need to discuss Query created by: Yvonne Garrett on 08/08/2018 2:53 PM Electronically signed by: Ian Miller DO 08/10/2018 7:58 AM
== END 2018-08-07 13:42 | disposition home or self-care (01) ==
LOC: ED 17:45 → ERH 08-07 00:29 → 3RNO 08-07 01:32
PROVIDERS: ADMIT Family Medicine; ATTEND Family Medicine
DX: J45.41 Moderate persistent asthma with (acute) exacerbation (principal); J06.9 Acute upper respiratory infection, unspecified; K82.4 Cholesterolosis of gallbladder; R79.1 Abnormal coagulation profile; Z90.721 Acquired absence of ovaries, unilateral; Z98.891 History of uterine scar from previous surgery; Z82.0 Family history of epilepsy and other diseases of the nervous system; R16.0 Hepatomegaly, not elsewhere classified
CPT/HCPCS: 36415; 71046; 71275; 76700; 80053; 80074; 81001; 81025; 82550; 82784; 82803; 83615; 83735; 83880; 84484; 85025; 85378; 85610; 85730; 86039; 86255; 86308; 93005; 93970; 94640; 96374; 96376; 99285; G0378; J2920; J2930; J7030; Q9967